=== PATIENT | male | born 1985 | race African-American/Black ===

== ENCOUNTER 2017-02-11 10:49 | Emergency (ER) | payer SELFPAY ==
[~2017-02-11] VITALS: Ht 167.6 cm; Wt 86.4 kg
[~2017-02-11 10:49] MED LIST: AMOXICILLIN500 MG PO; AUGMENTIN875TAB PO; CIPRODEX1 ML AS; FIORICET PO; LORTAB 5/3255 MG PO; NAPROSYN500 MG PO; NO HOMEMEDS; NO MEDS; NORCO1 TA1 PO; PERCOCET1 TA1 OR; PREVACID30 M2 OR; REGLAN10 MG OR; TORADOL OR; ULTRAM50 M1 PO
[2017-02-11] MEDS ORDERED: LORTAB 10-325 M1 TAB PO (11:49)
[2017-02-11 12:03] VITALS: BP 140/72
== END 2017-02-11 12:12 | disposition home or self-care (01) | DRG 103 ==
LOC: ED 10:49
DX: R51 Headache (principal); R11.2 Nausea with vomiting, unspecified

== ENCOUNTER 2018-04-15 11:20 | Emergency (ER) | payer SELFPAY ==
[~2018-04-15] VITALS: Ht 167.6 cm; Wt 90.0 kg
[~2018-04-15 11:20] MED LIST changes: +LORTAB 10-325 M1 TAB PO
[2018-04-15] MEDS ORDERED: ZOFRAN4 MG/TAB PO (11:32)
[2018-04-15] MEDS ORDERED: TORADOL PO (11:32)
[2018-04-15 11:50] VITALS: BP 157/94
== END 2018-04-15 11:50 | disposition home or self-care (01) | DRG 103 ==
LOC: ED 11:20
DX: R51 Headache (principal); F17.210 Nicotine dependence, cigarettes, uncomplicated

== ENCOUNTER 2018-12-21 14:16 | Emergency (ER) | payer BC ==
[~2018-12-21] VITALS: Ht 167.6 cm; Wt 75.0 kg
[~2018-12-21 14:16] MED LIST changes: +TORADOL PO; +ZOFRAN4 MG/TAB PO
[2018-12-21] MEDS ORDERED: DICLOFENAC50 MG PO (16:20)
[2018-12-21] MEDS ORDERED: FLEXERIL PO (16:20)
[2018-12-21 16:58] VITALS: BP 119/79
== END 2018-12-21 16:58 | disposition home or self-care (01) | DRG 103 ==
LOC: ED 14:16
DX: R51 Headache (principal); M54.2 Cervicalgia; M54.9 Dorsalgia, unspecified; G89.29 Other chronic pain; F17.200 Nicotine dependence, unspecified, uncomplicated

== ENCOUNTER 2021-04-12 06:45 | Emergency (ER) | payer BC ==
[~2021-04-12] VITALS: Ht 170.2 cm; Wt 86.3 kg
[~2021-04-12 06:45] MED LIST changes: +DICLOFENAC50 MG PO; +FLEXERIL PO
[2021-04-12 07:52] LABS: HEMOGLOBIN 14.5 g/dl (14.0-18.0); IMMATURE GRANULOCYTES 0.3 % (0.0-5.0); MEAN CELL VOLUME 84.3 fL CALC (80.0-100.0); MEAN CORPUSCULAR HGB 27.8 pG CALC (26.0-32.0); NEUT# 4.7 thou/uL (1.82-7.42); RED BLOOD COUNT 5.22 mill/uL (4.70-6.10); RED CELL DISTRI WIDTH 14.2 % (11.5-15.5)
[2021-04-12 08:00] LABS: ALBUMIN 3.4 g/dL (3.2-5.0); ALKALINE PHOSPHATASE 55 u/l (38-126); ANION GAP 8 (6-22 (CALC)); BUN 13 mg/dL (9-20); BUN/CREATININE RATIO 11 (12-20 (CALC)); CARBON DIOXIDE 28 mmol/l (22-30); CHLORIDE 105 mmol/l (95-108); CREATININE 1.2 mg/dL (0.7-1.3); GFR > 60 ML/MIN (>=60 (CALC)); GFR FOR AFR.AMER. > 60 ML/MIN (>=60 (CALC)); LIPASE 598 u/l (23-300); POTASSIUM 3.4 mmol/l (3.5-5.1); SGOT/AST 31 u/l (17-59); SODIUM 138 mmol/l (137-146); TOTAL PROTEIN 6.1 g/dL (6.3-8.2)
[2021-04-12 10:19] VITALS: BP 156/92
== END 2021-04-12 10:25 | disposition home or self-care (01) | DRG 395 ==
LOC: ED 06:45
PROVIDERS: Emergency Medicine
DX: K46.9 Unspecified abdominal hernia without obstruction or gangrene (principal); R74.8 Abnormal levels of other serum enzymes; F17.200 Nicotine dependence, unspecified, uncomplicated
CPT/HCPCS: Q9967

== ENCOUNTER 2022-12-13 22:19 | Emergency (ER) | payer SELFPAY ==
[~2022-12-13] VITALS: Ht 170.2 cm; Wt 86.0 kg
[2022-12-13 23:00] VITALS: BP 142/97
[2022-12-13 23:42] VITALS: BP 142/97
== END 2022-12-13 23:50 | disposition home or self-care (01) | DRG 395 ==
LOC: ED 22:19
DX: K40.90 Unilateral inguinal hernia, without obstruction or gangrene, not specified as recurrent (principal); K46.9 Unspecified abdominal hernia without obstruction or gangrene

== ENCOUNTER 2023-04-25 21:40 | Emergency (ER) | payer SELFPAY ==
[~2023-04-25] VITALS: Ht 170.2 cm; Wt 100.0 kg
[2023-04-25 22:20] VITALS: BP 129/87
[2023-04-25 22:30] VITALS: BP 127/87
[2023-04-25 22:46] VITALS: BP 141/84
[2023-04-25 23:00] VITALS: BP 133/84
[2023-04-25 23:15] VITALS: BP 121/79
[2023-04-26 00:44] VITALS: BP 121/79
== END 2023-04-26 00:44 | disposition home or self-care (01) | DRG 395 ==
LOC: ED 21:40
DX: K40.30 Unilateral inguinal hernia, with obstruction, without gangrene, not specified as recurrent (principal)